=== PATIENT | female | born 1985 | race Caucasian/White ===

== ENCOUNTER 2022-02-14 17:57 | Outpatient (CLI) | payer OTHER, SELFPAY ==
[2022-02-15 17:11] LABS: Antimullerian Hormone <0.03 ng/mL (0.58-8.1)
== END 2022-02-14 17:58 | disposition home or self-care (01) ==
LOC: LBO 17:57
PROVIDERS: Visit Provider Obstetrics & Gynecology
DX: N80.9 Endometriosis, unspecified (principal)
CPT/HCPCS: 36415; 83520

== ENCOUNTER 2022-03-30 21:06 | Outpatient (REF) | payer OTHER, SELFPAY ==
[2022-03-30 21:43] LABS: Bacteria Moderate HPF (Negative); C & S Indicated? C&S Done As Ordered; Casts Negative LPF (Negative); Crystals Negative HPF (Negative); Epithelial Cells Few HPF (Negative); Mucus Negative (Negative)
== END 2022-03-30 21:07 | disposition home or self-care (01) ==
LOC: LBN 21:06
PROVIDERS: Visit Provider Physician Assistant Medical
DX: R30.9 Painful micturition, unspecified (principal); R82.998 Other abnormal findings in urine
CPT/HCPCS: 87077; 81015; 87086; 87186

== ENCOUNTER 2022-04-11 19:30 | Outpatient (REF) | payer OTHER, SELFPAY | END 2022-04-11 19:31 | disposition home or self-care (01) | LOC: LBN 19:30 | PROVIDERS: Visit Provider Nurse Practitioner Family | DX: N39.0 Urinary tract infection, site not specified (principal) | CPT/HCPCS: 87077; 87086; 87186 ==